=== PATIENT | female | born 1975 | race Caucasian/White ===

== ENCOUNTER → 2016-09-22 | Outpatient (CLI) | payer BC ==
[~2016-09-22] MED LIST: CAFF200T PO; LISI-538 PO; PRENTAB74 PO; PRIS50TA PO; PROBCAP4 PO; ZEGE40CA3 PO
--- NOTE | 2016-09-23 02:36 | REP ---
Clinical: Pain Technique: AP, lateral, bilateral oblique views right ankle . Findings: No acute fracture or dislocation. Skeletal structures and joint spaces are intact and normal. Ankle mortise appears stable. No subcutaneous emphysema or radiodense foreign body. Small calcaneal heal spur incidentally noted. Impression: Normal right ankle radiograph series. Signed by Jose Pearson MD 09/23/2016 02:28 A
--- NOTE | 2016-09-23 04:19 | REP ---
Clinical: Pain without history of trauma. Technique: AP, lateral, bilateral oblique views right foot . Findings: The osseous structures and joint spaces are intact and normal. There is no evidence for acute fracture or dislocation. Small calcaneal heal spur noted. Surrounding soft tissues are unremarkable. No subcutaneous emphysema or radiodense foreign body. Impression: Small calcaneal heal spur. Otherwise age appropriate right foot radiograph series. Signed by Jose Pearson MD 09/23/2016 04:11 A
== END ==
LOC: M RAD 16:48
PROVIDERS: ATTEND Nurse Practitioner Family
DX: M79.671 Pain in right foot (principal); M25.571 Pain in right ankle and joints of right foot; M77.31 Calcaneal spur, right foot

== ENCOUNTER → 2016-10-22 | Outpatient (REF) | payer BC | LOC: M LAB REF 15:45 | PROVIDERS: ATTEND Physician Assistant | DX: J02.9 Acute pharyngitis, unspecified (principal) ==

== ENCOUNTER → 2016-11-11 | Outpatient (CLI) | payer BC ==
--- NOTE | 2016-11-11 16:24 | REPMRS ---
Patient History The patient states she had a clinical breast exam in Patient is nulliparous. No known family history of cancer. Digital Woman Screen Mammo: November 11, 2016 - Exam #: [id number] Bilateral CC and MLO view(s) were taken. Technologist: Quyen Barrios, Technologist FINDINGS: There are scattered fibroglandular densities. There is no evidence of cancer on this mammogram. ASSESSMENT: BI-RADS/ACR category 2 mammogram. Benign finding(s). Recommendation Routine screening mammogram of both breasts in 1 year (for women over age 40). This mammogram was interpreted with the aid of an FDA-approved computer-aided dectection system. Electronically Signed By: Pietro Swanson MD 11/11/16 [id number]
--- NOTE | 2016-11-12 04:20 | REP ---
Clinical: Pelvic pain. Technique: Transabdominal pelvic ultrasound followed by transvaginal examination for better evaluation of the endometrium and adnexa. Findings: Bladder is unremarkable and measures 15.0 x 10.4 x 10.4 cm . Normal anteverted uterus measures 9.5 x 4.0 x 4.7 cm . The endometrial complex measures 6.6 mm thickness. No discrete uterine or endometrial abnormalities are appreciated. Bilateral ovaries are normal in appearance. Right ovary measures 4.0 x 2.2 x 2.2 cm with 1.5 cm involuting follicle. Left ovary measures 3.6 x 1.8 x 2.4 cm with multiple subcentimeter follicles. No pelvic fluid or adnexal mass lesion. Impression: 1. Relatively normal pelvic ultrasound as described above. Signed by Jose Pearson MD 11/12/2016 04:11 A
== END ==
LOC: M WHC 14:59
PROVIDERS: ATTEND Nurse Practitioner Family
DX: R14.0 Abdominal distension (gaseous) (principal); N93.9 Abnormal uterine and vaginal bleeding, unspecified; Z12.31 Encounter for screening mammogram for malignant neoplasm of breast
CPT/HCPCS: 76830; 76856; G0202

== ENCOUNTER → 2017-04-28 | Outpatient (REF) | payer BC | LOC: M LAB REF 17:25 | PROVIDERS: ATTEND Nurse Practitioner Women's Health | DX: N39.0 Urinary tract infection, site not specified (principal) ==

== ENCOUNTER → 2017-11-03 | Outpatient (CLI) | payer BC ==
[2017-11-09 00:07] LABS: HCV RNA NAA QUALITATIVE Negative (Negative)
== END ==
LOC: M LAB 14:55
DX: B00.1 Herpesviral vesicular dermatitis (principal)

== ENCOUNTER → 2018-03-17 | Outpatient (CLI) | payer BC | LOC: M WHC 08:01 | DX: Z12.31 Encounter for screening mammogram for malignant neoplasm of breast (principal) | CPT/HCPCS: 77067 ==

== ENCOUNTER → 2018-04-08 | Outpatient (CLI) | payer BC | LOC: M WUC 16:33 | DX: M77.32 Calcaneal spur, left foot (principal) | CPT/HCPCS: 73630 ==

== ENCOUNTER → 2018-05-13 | Outpatient (CLI) | payer BC | LOC: M LRY 10:46 | DX: S99.911A Unspecified injury of right ankle, initial encounter (principal); M25.511 Pain in right shoulder; X58.XXXA Exposure to other specified factors, initial encounter; Y92.9 Unspecified place or not applicable; M79.89 Other specified soft tissue disorders; M77.31 Calcaneal spur, right foot | CPT/HCPCS: 73030 ==

== ENCOUNTER → 2018-10-10 | Outpatient (CLI) | payer BC ==
[2018-10-10 09:01] LABS: ALBUMIN 3.8 GM/DL (3.2-5.2); ALT/SGPT 35 U/L (12-78); BILIRUBIN,TOTAL 0.3 MG/DL (0.2-1.0); BLOOD UREA NITROGEN 9 MG/DL (7-18); CALCIUM LEVEL 8.9 MG/DL (8.5-10.1); CARBON DIOXIDE LEVEL 27 MEQ/L (21-32); CHLORIDE LEVEL 104 MEQ/L (98-107); CHOLESTEROL LEVEL 206 MG/DL (<200); CHOLESTEROL RISK RATIO 4.904 (<5); GLOMERULAR FILTRATION RATE > 60.0 (>58); GLUCOSE, FASTING 102 MG/DL (70-100); HDL CHOLESTEROL 42 MG/DL (>40); LDL CHOLESTEROL 109 MG/DL (<100); NON-HDL-C 164 MG/DL; POTASSIUM SERUM 3.9 MEQ/L (3.5-5.1); SODIUM LEVEL 137 MEQ/L (136-145); TOTAL PROTEIN 7.2 GM/DL (6.4-8.2); TRIGLYCERIDES LEVEL 274 MG/DL (<150)
== END ==
LOC: M LAB 08:03
PROVIDERS: ATTEND Nurse Practitioner Family
DX: E78.5 Hyperlipidemia, unspecified (principal); I10 Essential (primary) hypertension

== ENCOUNTER → 2019-05-02 | Outpatient (CLI) | payer BC ==
[~2019-05-02] MED LIST changes: +E-Z-GAS II EFFERVESCENT PACKET (SODIUM BICARB./CITRIC ACID/SIMETHICONE) As Ordered ONE; +E-Z-HD 98% w/w 340GM SUSP BTL As Ordered ONE; +E-Z-PAQUE 96% w/w SUSP 176GM BTL As Ordered ONE
--- NOTE | 2019-05-05 17:30 | REP ---
Examination Requested: Esophagram Barium Swallow Reason For Exam/Comment: Gastroesophageal reflux disease Esophagram: The procedure was performed BENJAMIN Ponce, under the direct supervision of Dr. Swanson. The images were reviewed with Dr. Swanson. A single PA chest x-ray is submitted as a hotel concierge film. The superior mediastinal structures are midline. The heart size is within normal limits. The lungs are clear. Liquid barium and gas producing granules were given in the erect position as well as liquid barium in the prone oblique position, in order to perform a double contrast esophagram examination. Oral and pharyngeal stages of the examination were unremarkable. Esophageal transport is efficient and there is no esophagitis, stricture, or mucosal ring noted. There is no hiatal hernia noted. Gastroesophageal reflux was not visualized throughout the course of this exam. Impression: 1. Unremarkable upper GI. 1.1 minutes of fluoroscopy time was utilized for this procedure. Some fluoroscopic images are performed with last image hold technology. These images require no additional radiation. Reviewed by BENJAMIN Duran 05/02/2019 05:54 P Electronically Signed by Pietro Swanson MD 05/05/2019 05:21 P
== END ==
LOC: M RAD 08:01
PROVIDERS: ATTEND Internal Medicine Gastroenterology
DX: K21.9 Gastro-esophageal reflux disease without esophagitis (principal); E55.9 Vitamin D deficiency, unspecified; Z79.899 Other long term (current) drug therapy; R14.2 Eructation; R12 Heartburn; R11.2 Nausea with vomiting, unspecified; K44.9 Diaphragmatic hernia without obstruction or gangrene; K58.0 Irritable bowel syndrome with diarrhea

== ENCOUNTER → 2019-05-17 | Outpatient (CLI) | payer BC ==
[~2019-05-17] MED LIST changes: -E-Z-GAS II EFFERVESCENT PACKET (SODIUM BICARB./CITRIC ACID/SIMETHICONE) As Ordered ONE; -E-Z-HD 98% w/w 340GM SUSP BTL As Ordered ONE; -E-Z-PAQUE 96% w/w SUSP 176GM BTL As Ordered ONE
[2019-05-17 20:58] LABS: MAGNESIUM LEVEL 2.1 MG/DL (1.8-2.4)
[2019-05-17 21:11] LABS: TOTAL 25(OH) VITAMIN D 24.3 NG/ML (30.0-100.0)
== END ==
LOC: M WUC 15:33
PROVIDERS: ATTEND Internal Medicine Gastroenterology
DX: E55.9 Vitamin D deficiency, unspecified (principal); Z79.899 Other long term (current) drug therapy; R14.2 Eructation; R12 Heartburn; R11.2 Nausea with vomiting, unspecified; K44.9 Diaphragmatic hernia without obstruction or gangrene; K58.0 Irritable bowel syndrome with diarrhea

== ENCOUNTER → 2019-05-17 | Outpatient (CLI) | payer BC ==
--- NOTE | 2019-05-17 21:39 | REP ---
Clinical: Right knee pain. Technique: AP, lateral, sunrise views of the right knee. Findings: Mild arthritic changes include very small osteophyte/spurring along the lateral tibial plateau and lateral margin of the patella as well as increased sclerosis to the tibial plateau and posterior patellar margin with minimal joint space narrowing. No effusion. No acute fracture or dislocation. Impression: Mild arthritic degenerative changes. Electronically Signed by Jose Pearson MD 05/17/2019 09:30 P
== END ==
LOC: M WUC 15:28
PROVIDERS: ATTEND Nurse Practitioner Family
DX: M17.9 Osteoarthritis of knee, unspecified (principal)

== ENCOUNTER → 2019-08-08 | Outpatient (CLI) | payer BC | LOC: M WHC 10:01 | PROVIDERS: ATTEND Family Medicine | DX: E55.9 Vitamin D deficiency, unspecified (principal); Z79.899 Other long term (current) drug therapy; R14.2 Eructation; R12 Heartburn; R11.2 Nausea with vomiting, unspecified; K44.9 Diaphragmatic hernia without obstruction or gangrene; K58.0 Irritable bowel syndrome with diarrhea ==

== ENCOUNTER → 2019-08-08 | Outpatient (CLI) | payer BC ==
--- NOTE | 2019-08-08 12:30 | REPMRS ---
Patient History The patient states she had a clinical breast exam in July 2019.No known family history of cancer. No Hormone Replacement Therapy 3D TOMOSYNTHESIS WAS PERFORMED. The Beatris Yeboah lifetime risk for breast cancer is 12.0%. Digital Woman Screen Mammo: August 08, 2019 - Exam #: [id number] Bilateral CC and MLO view(s) were taken. Technologist: Yen Lindo, Technologist Prior study comparison: March 17, 2018, bilateral digital woman screen mammo performed at [facility] [place]. November 11, 2016, digital woman screen mammo performed at [facility] [place]. FINDINGS: The breast tissue is heterogeneously dense. This may lower the sensitivity of mammography. There has been no change in the appearance of the mammogram from the prior studies. There is a moderate amount of residual fibroglandular tissue which is fairly symmetric. There is no interval development of dominant mass, areas of architectural distortion, or clustered microcalcification typical of malignancy. Assessment: BI-RADS/ACR category 1 mammogram. Negative Mammogram. Recommendation Routine screening mammogram in 1 year (for women over age 40). This mammogram was interpreted with the aid of an FDA-approved computer-aided dectection system. Electronically Signed By: Pietro Swanson MD 08/08/19 [id number]
== END ==
LOC: M WHC 09:51
PROVIDERS: ATTEND Nurse Practitioner Women's Health
DX: Z12.31 Encounter for screening mammogram for malignant neoplasm of breast (principal)

== ENCOUNTER → 2023-10-05 | Outpatient (REF) | payer BC ==
[~2023-10-05] MED LIST changes: -LISI-538 PO; +LISI20TA33 PO
[2023-10-05 21:08] LABS: BASO # 0.1 10^3/uL (0.0-0.2); BASO % 0.8 % (0.0-1.0); EOS # 0.1 10^3/uL (0.0-0.5); EOS % 1.3 % (0.0-3.0); HEMATOCRIT 35.1 % (36.0-47.0); HEMOGLOBIN 10.7 g/dl (12.0-15.5); LYMPH # 2.7 10^3/uL (1.5-5.0); LYMPH % 35.1 % (24.0-44.0); MEAN CORPUSCULAR HEMOGLOBIN 24.4 pg (27.0-33.0); MEAN CORPUSCULAR HGB CONC 30.5 g/dl (32.0-36.5); MEAN CORPUSCULAR VOLUME 80.1 fl (80.0-96.0); MONO # 0.6 10^3/uL (0.0-0.8); MONO % 7.9 % (2.0-8.0); NEUTROPHILS # 4.2 10^3/uL (1.5-8.5); NEUTROPHILS % 54.6 % (36.0-66.0); PLATELET COUNT, AUTOMATED 381 10^3/uL (150-450); RED BLOOD COUNT 4.38 10^6/uL (4.00-5.40); WHITE BLOOD COUNT 7.8 10^3/uL (4.0-10.0)
[2023-10-05 21:15] LABS: ERYTHROCYTE SEDIMENTATION RATE 27 mm/hr (0-20)
== END ==
LOC: M LABWUC 20:27
PROVIDERS: ATTEND Orthopaedic Surgery
DX: M25.552 Pain in left hip (principal)

== ENCOUNTER → 2023-11-09 | Outpatient (CLI) | payer BC ==
[~2023-11-09] MED LIST changes: +PROHANCE 279.3MG/ML 15ML VIAL As Ordered ONE; +PROHANCE 279.3MG/ML 5ML VIAL As Ordered ONE
== END ==
LOC: M RAD 15:59
PROVIDERS: ATTEND Orthopaedic Surgery
DX: M25.551 Pain in right hip (principal); M25.552 Pain in left hip
CPT/HCPCS: 73720; A9576

== ENCOUNTER → 2024-01-02 | Outpatient (CLI) | payer BC ==
[~2024-01-02] MED LIST changes: -PROHANCE 279.3MG/ML 15ML VIAL As Ordered ONE; -PROHANCE 279.3MG/ML 5ML VIAL As Ordered ONE
== END ==
LOC: M PLARAD 07:33
PROVIDERS: ATTEND Nurse Practitioner Family
DX: M89.9 Disorder of bone, unspecified (principal)
CPT/HCPCS: 78815; A9552